=== PATIENT | female | born 1965 | race Hispanic/Latino ===

== ENCOUNTER → 2024-11-24 | Day surgery (SDC) | payer BC ==
[~2024-11-24] MED LIST: FENTANYL CITRATE/PF 100MCG/2 ML INJ ONE; LIDOCAINE HCL 2% LOCAL INJ 5 ML SDV VIAL INJ ONE; MIDAZOLAM HCL 2 MG/2 ML VIAL ONE; MIRALAX17 GM PO; OMEPRAZOLE40 MG PO; PROPOFOL IV EMULSION 10 MG/ML 20 ML VIAL ONE; SELENIUM; SLOW-MAG64 MG PO; SUCRALFATE1 GM PO; VITAMIN C1000 MG PO; VITAMIN D31 ML
[2024-11-24] MEDS: LACTATED RINGER'S 1,000 ML ONE (11:10)
[2024-11-24 12:55] VITALS: TEMP 99.7
[2024-11-24 13:25] VITALS: BP 113/80; PULSE 59; RESP 16; O2SAT 96
== END | disposition home or self-care (01) ==
LOC: OR 10:18
PROVIDERS: ATTEND Internal Medicine Gastroenterology
DX: K22.70 Barrett's esophagus without dysplasia (principal); K31.7 Polyp of stomach and duodenum; K29.70 Gastritis, unspecified, without bleeding; K20.90 Esophagitis, unspecified without bleeding; K44.9 Diaphragmatic hernia without obstruction or gangrene; K21.9 Gastro-esophageal reflux disease without esophagitis; K59.09 Other constipation; K76.0 Fatty (change of) liver, not elsewhere classified; R05.9 Cough, unspecified; M06.9 Rheumatoid arthritis, unspecified; F32.A Depression, unspecified
CPT/HCPCS: 43239; J2003; J2250; J2470; J2704; J3010; J7121